=== PATIENT | female | born 1995 | race Hispanic/Latino ===

== ENCOUNTER 2024-01-14 15:58 | Emergency (ER) | payer SELFPAY ==
[~2024-01-14] VITALS: Ht 152.4 cm; Wt 99.8 kg
[2024-01-14 18:30] LABS: BASOPHILS # (AUTO) 0.05 K/uL (0.00-0.20); BASOPHILS % (AUTO) 0.4 % (0.0-5.0); EOSINOPHILS # (AUTO) 0.05 K/uL (0.00-0.70); EOSINOPHILS % (AUTO) 0.4 % (0.0-8.0); HEMATOCRIT 40.1 % (36-48); IMMATURE GRANULOCYTE ABSOLUTE 0.04 K/uL (0-1); LYMPHOCYTES # (AUTO) 2.7 K/uL (1.0-4.8); LYMPHOCYTES % (AUTO) 22.8 % (21.0-51.0); MEAN CORPUSCULAR HEMOGLOBIN 26.1 pg (27.0-33.0); MEAN CORPUSCULAR HGB CONC 31.4 g/dL (32.0-36.0); MONOCYTES # (AUTO) 0.5 K/uL (0.1-1.0); MONOCYTES % (AUTO) 4.6 % (3.0-13.0); NEUTROPHILS # (AUTO) 8.4 K/uL (1.8-7.7); NEUTROPHILS % (AUTO) 71.5 % (40.0-77.0); PLATELET COUNT (AUTO) 297 K/uL (130-400); RED BLOOD CELL COUNT(AUTO) 4.83 MIL/uL (4.00-5.50); RED CELL DISTRIBUTION WIDTH 15.9 % (11.0-15.5); WHITE BLOOD COUNT (AUTO) 11.7 K/uL (4.8-10.8)
[2024-01-14 18:39] LABS: CREATININE 0.6 mg/dL (0.5-1.0); POTASSIUM 3.8 mmol/L (3.5-5.1)
[2024-01-14] MEDS: ondanSETRON ODT 4MG TAB SL ONE (19:07)
[2024-01-14] MEDS: FAMOTIDINE 20MG TAB PO ONE (19:07)
[2024-01-14 20:25] VITALS: BP 150/72; PULSE 105; RESP 17; TEMP 98.4; O2SAT 96
== END 2024-01-14 20:37 | disposition home or self-care (01) ==
LOC: EDH 15:58
DX: O21.9 Vomiting of pregnancy, unspecified (principal); O26.891 Other specified pregnancy related conditions, first trimester; R10.31 Right lower quadrant pain; I10 Essential (primary) hypertension; J45.909 Unspecified asthma, uncomplicated; R10.2 Pelvic and perineal pain
CPT/HCPCS: 36415; 76801; 80048; 84702; 85025

== ENCOUNTER 2024-05-02 20:45 | Emergency (ER) | payer OTHER ==
[~2024-05-02] VITALS: Ht 165.1 cm; Wt 90.7 kg
--- NOTE | 2024-05-02 21:15 | ERN ---
ED Note History of Present Illness Stated Complaint: FLU LIKE SYMPTOMS Chief Complaint: Flu Symptoms Time Seen by MD: 20:48 Dictation: PATIENT IS A 28-YEAR-OLD FEMALE COMING IN TODAY WITH COMPLAINTS OF FLU-LIKE SYMPTOMS TO INCLUDE FRONTAL HEADACHE, SORE THROAT WITH PAINFUL SWALLOWING, CLEAR RHINITIS AND PRODUCTIVE COUGH WITH CLEAR YELLOW PHLEGM. SHE IS ALSO HAVING BODY ACHES WITH LOW-GRADE FEVER. STATES SHE IS APPROXIMATELY 20 WEEKS TWO DAYS , PRIMARY CARE DOCTOR IS IN [facility] Allergies: Coded Allergies: No Known Drug Allergies (Unverified Allergy, Unknown, 01/14/24) Past Medical History Past Medical History: Asthma Surgical History: None LMP: Nov 23, 2023 : 3 Para: 2 Aborts: 0 RN Note Reviewed/Agreed w/PFSH: Yes Review of System Dictation CONSTITUTIONAL: NEGATIVE EXCEPT FOR HPI FEVER CHILLS HEAD/FACE: NEGATIVE EXCEPT FOR HPI EENT: NEGATIVE EXCEPT FOR HPI CLEAR RHINITIS WITH SORE THROAT RESPIRATORY: NEGATIVE EXCEPT FOR HPI PRODUCTIVE COUGH GASTROINTESTINAL/ABDOMINAL: NEGATIVE EXCEPT FOR HPI GENITOURINARY: NEGATIVE EXCEPT FOR HPI MUSCULOSKELETAL: NEGATIVE EXCEPT FOR HPI INTEGUMENTARY: NEGATIVE EXCEPT FOR HPI NEUROLOGICAL/PSYCH: NEGATIVE EXCEPT FOR HPI HEMATOLOGIC/LYMPHATIC: NEGATIVE EXCEPT FOR HPI ALL SYSTEMS NEGATIVE, EXCEPT NOTED ABOVE. 13 POINT REVIEW OF SYSTEMS ASSESSED AND ALL NEGATIVE EXCEPT FOR ABOVE. Initial Vital Sign VS Vital Signs Date Time Temp Pulse Resp B/P (MAP) Pulse Ox O2 Delivery O2 Flow Rate FiO2 05/02/24 20:45 99.3 98 20 136/81 99 Room Air 05/02/24 21:19 0 21 Physical Exam Dictation VITAL SIGNS REVIEWED GENERAL APPEARANCE: ALERT, ORIENTED X 3, MILD ACUTE DISTRESS, WELL DEVELOPED, NOURISHED. HEAD AND FACE: NON-TRAUMATIC. EYES: PERRL, PINK CONJUNCTIVAS, EYELID NO TRAUMA, ANTERIOR CHAMBER WITH ARCUS SENILIS. EARS: PINNAS INTACT AND NO SIGNS OF TRAUMA OR ERYTHEMA EAR CANALS CLEAR AND NO DISCHARGE TM NO ERYTHEMA NOSE: CLEAR DISCHARGE, NO BLEEDING. OROPHARYNX: MOUTH NORMAL, TONGUE PINK, PHARYNX CLEAR, MODERATE PHARYNGEAL ERYTHEMA, TONSILS NO EXUDATES, NO ABSCESSES NOTED, MUCOUS MEMBRANE MOIST UVULA MIDLINE, VOICE IS CLEAR NECK: SUPPLE, NON-TENDER, NO THYROMEGALY, NO MASSES, NO JVD, NO BRUITS BREAST:DEFERRED CHEST:NO TENDERNESS, NO CREPITUS, NO PARADOXICAL MOVEMENT, NO RETRACTIONS LUNGS:CLEAR, WELL-VENTILATED, SYMMETRIC, NO RALES, NO WHEEZING, NO RHONCHI, NO STRIDOR, GOOD BREATH SOUNDS BILATERALLY HEART: REGULAR RATE, REGULAR RHYTHM, NO MURMUR, NO GALLOPS VASCULAR: NO PERIPHERAL EDEMA, ABDOMEN: SOFT, POSITIVE BOWEL SOUNDS, NONDISTENDED, NO GUARDING, NONTENDER, NO REBOUND, NO MASSES NO HEPATOMEGALY, NO SPLENOMEGALY, NO WELSH'S SIGN, NO HERNIAS. RECTAL: DEFERRED GENITAL: DEFERRED NEUROLOGICAL: NORMAL SPEECH, MOTOR FUNCTION INTACT, SENSORY FUNCTION INTACT MUSCULOSKELETAL: NECK NONTENDER, FULL RANGE OF MOTION, BACK NONTENDER, FULL RANGE OF MOTION, EXTREMITIES: NONTENDER, FULL RANGE OF MOTION SKIN: COLOR PINK, DRY, NO TURGOR, NO RASH, NO LACERATIONS, NO ABRASIONS, NO CONTUSIONS. LYMPHATIC: DEFERRED Results (Laboratory/Radiology) Laboratory/Radiology Laboratory Tests Test 05/02/24 21:16 Influenza Type A Antigen Negative For Type A Influenza Type B Antigen Positive For Type B SARS-CoV-2 Antigen (Rapid) PRESUMPTIVE NEGATIVE Group A Streptococcus Rapid negative (NEGATIVE) Labs Reviewed?: Yes ED Course ED Course Orders Procedure Category Date Status Time Rapid (Group A Strep) LAB 05/02/24 Complete 21:11 Influenza Type A & B, LAB 05/02/24 Complete Rapid 21:11 Covid19 (Sars Antigen LAB 05/02/24 Complete Rapid) 21:11 Acetaminophen 500mg PHA 05/02/24 Complete Tab (Tylenol 500mg T 21:30 *Nursing CPOE 05/02/24 Transmitted Communication: 21:11 Oseltamivir Phosphate PHA 05/02/24 Verified (Tamiflu) 22:30 Current Medications Medications (Trade) Dose Ordered Sig/Licha Route PRN Reason Start Time Stop Time Status Last Admin Dose Admin Acetaminophen (TYLenol 500MG TAB) 1,000 mg ONCE ONCE PO 05/02/24 21:30 05/02/24 21:31 DC 05/02/24 21:34 Vital Signs Date Time Temp Pulse Resp B/P (MAP) Pulse Ox O2 Delivery O2 Flow Rate FiO2 05/02/24 21:19 99.3 119 19 126/74 98 Room Air* 0 21 05/02/24 20:45 99.3 98 20 136/81 99 Room Air 2132/ HEART TONES 140 CHECKED BY NIKKI [id number]/PATIENT WITH 2202/PATIENT WITH INFLUENZA B, WE WILL BE GIVEN 1ST DOSE OF [id number] MG P.O. NOW. IN ADDITION HEART TONES 140 SHE WAS TOLD TO TAKE TYLENOL ONLY FOR FEVER PAIN TAKE TAMIFLU DIRECTED AND SEE HER DIALS INSPECTOR ON SATURDAY Medical Decision Making MDM MEDICAL DECISION-MAKING BASED ON SWABS FOR FLU COVID AND STREP ALSO HEART TONES VERIFIED SINCE PATIENT IS 20 WEEKS DISCHARGED HOME WITH TAMIFLU AND INSTRUCTIONS TO TAKE TYLENOL ONLY FOR FEVER PAIN UNTIL CLEARED BY HER DOCTOR AND INCREASE FLUID DX & DISP Disposition: Discharge Departure Impression: Primary Impression: Influenza B Additional Impressions: Fever, and not yet delivered in second trimester Condition: Stable Scripts Oseltamivir Phosphate (Tamiflu) 75 Mg Cap 1 CAP PO BID for 5 Days, #10 CAP 0 Refills Prov: ESTHELA SIMMONS PEST CONTROL APPLICATOR 05/02/24 Additional Instructions: FOLLOW-UP WITH PRIMARY CARE PROVIDER IN 1 TO 2 DAYS. TAKE MEDICATIONS D IRECTED HERE IN THE EMERGENCY ROOM. OKAY TO CONTINUE HOME MEDICATIONS UNLESS OTHERWISE DISCUSSED DURING YOUR VISIT IN THE EMERGENCY ROOM TODAY. RETURN TO YOUR NEAREST EMERGENCY ROOM IF SYMPTOMS WORSEN OR IF THERE IS NO IMPROVEMENT. CALL 911 IF YOU NEED IMMEDIATE ASSISTANCE. TAKE TYLENOL [id number] NEEDED AND IF NO CONTRAINDICATIONS ARE PRESENT. INCREASE ORAL HYDRATION. A WOUND CULTURE OR URINE CULTURE WAS ORDERED HERE IN THE EMERGENCY ROOM DEPARTMENT PLEASE FOLLOW-UP WITH PRIMARY CARE PROVIDER AND ADVISE THEM TO GET REPEAT PORTS FROM OUR FACILITY. IF YOU HAD ANY DESIREE WRAP/SPLINTS THAT WERE APPLIED HERE, PLEASE DO NOT REMOVE THEM UNTIL YOU SEE YOUR PRIMARY CARE OR SPECIALTY. TAKE TAMIFLU DIRECTED UNTIL GONE. TAKE TYLENOL [id number] NEEDED FOR FEVER PAIN. FOLLOW UP WITH YOUR PRIMARY CARE DOCTOR IN 1-2 DAYS, ANYBODY IN YOUR FAMILY WITH FLU SYMPTOMS SHOULD BE EXAMINED BY THEIR DOCTOR Referrals: SELF,REFERRAL (PCP) Time of Disposition: 22:05 I have reviewed the case, and I agree with, Diagnosis and Plan ESTHELA SIMMONS NP May 02, 2024 21:15
[2024-05-02 21:19] VITALS: TEMP 99.4
[2024-05-02] MEDS: acetaMINOPHEN 500 MG TABLET PO ONE (21:34)
[2024-05-02 21:47] LABS: RAPID GROUP A STREP negative (NEGATIVE)
[2024-05-02 21:59] LABS: COVID19 (SARS ANTIGEN RAPID) PRESUMPTIVE NEGATIVE (NEGATIVE)
[2024-05-02 22:00] LABS: INFLUENZA TYPE A Negative For Type A (NEGATIVE)
[2024-05-02 22:01] LABS: INFLUENZA TYPE B Positive For Type B (NEGATIVE)
[2024-05-02] MEDS ORDERED: OSEL75 PO (22:06)
[2024-05-02] MEDS: OSELTAMIVIR PHOSPHATE 75 MG CAP PO ONE (22:24)
[2024-05-02 22:51] VITALS: BP 111/62; PULSE 91; RESP 18; O2SAT 99
== END 2024-05-02 22:54 | disposition home or self-care (01) ==
LOC: EDH 20:45
DX: O98.512 Other viral diseases complicating pregnancy, second trimester (principal); J10.1 Influenza due to other identified influenza virus with other respiratory manifestations; J45.909 Unspecified asthma, uncomplicated; Z20.822 Contact with and (suspected) exposure to COVID-19; Z3A.20 20 weeks gestation of pregnancy
CPT/HCPCS: 87426; 87804; 87880; 99283